=== PATIENT | male | born 1950 ===

== ENCOUNTER → 2016-11-01 | Day surgery (SDC) | payer MEDICARE, OTHER ==
[~2016-11-01] MED LIST: Dexamethasone IV* 4 MG/ML 1 ML (4 MG) ONE; EPHEDrine (Pressors)* 50 MG/ML VIAL ONE; HYDROcodone/ACETAMIN 5-325 MG* 1 TAB PO PRN; Iohexol 180 (CONTRAST) 10 ML SDV IV ONE; Lidocaine 2% MPF* 2 ML VIAL ONE; Morphine INJ* 10 MG/ML 1 ML CARPUJECT ONE; Ondansetron INJ* 2 MG/ML VIAL ONE; PROCHLORPERAZINE INJ 5 MG/ML 2 ML VIAL IV PRN; Propofol* 10 MG/ML 20 ML BTL IV PUSH ONE; cefTRIAXone(*) 2 GM ADDV.VIAL IVPB ONE; fentaNYL* 50 MCG/ML 2 ML VIAL (100 MCG VIAL) IV PRN; fentaNYL* 50 MCG/ML 2 ML VIAL (100 MCG VIAL) ONE; oxyCODONE/Acetamin 5/325 MG* TAB PO PRN
--- NOTE | 2016-11-01 13:32 | HP ---
DATE OF ADMISSION: 11/01/2016. HISTORY OF PRESENT ILLNESS: Mr. Melgar is a 65-year-old white male who is admitted with a right ureteral calculus for cystoscopy, right ureteroscopy, laser lithotripsy, and right ureteral stent placement. Mr. Melgar's symptoms started about four days ago and had consisted of right flank pain radiating to the right lower quadrant, associated with nausea, but no vomiting. There was no associated fevr, gross hematuria, or urinary tract infection symptoms. Because of the severity of the pain, he went to the [facility] Emergency Room yesterday evening. He was evaluated and had blood work which showed a slight elevation of his white count of 12,000. His serum creatinine was 1.4. Urine analysis showed +3 blood, was negative for infection. He was afebrile. Noncontrast CT of the abdomen and pelvis showed severe right hydroureteronephrosis and a 1.2 cm calculus at the right ureterovesical junction. No other abnormalities were noted and no other calculi were seen. The patient was sent home on oral pain medications and referred to my office where he was evaluated this morning and he is being admitted for the above procedure. Past history is completely negative. No past history of any renal disease or calculi. He denies any voiding symptoms, having no decreased urinary stream and no symptoms of bladder outlet obstruction or history of gross hematuria. PAST MEDICAL HISTORY AND SYSTEM REVIEW: The patient had what sounds like ventricular septal defect and had undergone surgical repair of the defect at [facility] six years ago. He has done very well after the procedure and he is not followed by Cardiology anymore. He is hypertensive, well-controlled on Metoprolol 50 mg daily and Amlodipine 5 mg daily. He is diabetic on Metformin 500 mg daily. ALLERGIES: He denies any allergies to medications. FAMILY HISTORY: Relevant for possible family history of prostatic carcinoma in his father. SOCIAL HISTORY: He still works as a taxi truck driver. He is active and has good exercise tolerance. PHYSICAL EXAMINATION GENERAL: Pleasant white male who looks fit and who is in moderate discomfort. VITAL SIGNS: Blood pressure 120/70, pulse 50, temperature 97.3. LUNGS: Clear. HEART: Regular and rhythmic, no murmurs. ABDOMEN: Soft. There is moderate right CVA tenderness and right upper quadrant tenderness. The rest of the examination is normal. EXTERNAL GENITALIA: Normal. He has no inguinal hernias. RECTAL: Exam shows a moderately enlarged, but non-suspicious prostate. IMPRESSION: Recurrent episodes of right renal colic secondary to a 1.2 cm calculus at the right ureterovesical junction associated with severe right hydroureteronephrosis without evidence of infection and no other renal calculi. PLAN: Admission this afternoon for cystoscopy, right ureteroscopy laser lithotripsy, and right ureteral stent placement. Because of the size of the stone, it is possible he might need more than one procedure to render him stone-free. I discussed the above plans in detail with the patient and all his questions were answered. [id number]/[facility] #: [id number] SHERYL
--- NOTE | 2016-11-01 22:11 | RAD ---
INDICATION: Right ureteral calculus. Stent insertion COMPARISON: None FINDINGS: 6 seconds of fluoroscopy were provided for the urology department. Fluoroscopic spot imaging of the abdomen were obtained for operative control and show placement of a right ureteral stent in a mildly dilated collecting system which appears to be a bifid configuration. . CPT II Codes: 6045F (fluoro time doc)
[2016-11-01 22:49] VITALS: BP 144/69
--- NOTE | 2016-11-02 15:25 | OP ---
DATE OF OPERATION: 11/01/16 [facility] DATE OF : 46 SURGEON: George Shultz MD ANESTHESIOLOGIST: Gaurav Monaco MD ANESTHESIA: General. PRE-OP DIAGNOSIS: Right distal ureteral calculus (1.5 cm). POST-OP DIAGNOSIS: Right distal ureteral calculus (1.5 cm). OPERATIVE PROCEDURE: 1. Cystoscopy. 2. Right ureteroscopy and laser lithotripsy of right ureteral calculus. 3. Right retrograde pyelography and placement of right ureteral stent (8.5 Togolese) INDICATIONS: Mr. Melgar is a 65-year-old white male who presented to the emergency room at [facility] yesterday with symptoms of right renal colic. There was no fever or chills. Noncontrast CT showed a 1.5-cm obstructing calculus in the distal right ureter with severe right hydroureteronephrosis. No other abnormalities were noted. The patient was evaluated in the office today and scheduled for the above procedure. PATHOLOGY AT CYSTOSCOPY: The penile urethra looked normal. There were soft strictures in the bulbar urethra that were easily bypassed with the cystoscope. The prostatic urethra measured about 2.5 to 3 cm in length and there was moderate degree of obstruction by trilobar hyperplasia of the prostate and elevation of the bladder neck. Examination of the bladder showed moderate diffuse trabeculations. There were no suspicious bladder lesions seen. No calculi or diverticula were noted. The ureteral orifices looked normal. Upon right ureteroscopy, a 1.5-cm calculus was noted in the distal right ureter about 2 cm proximal to the orifice. The calculus was impacted. There was edema of the ureteral mucosa adjacent to the stone. The stone had the gross appearance of calcium oxalate. Right retrograde pyelography showed severe right hydronephrosis and hydroureter with tortuosity of the proximal ureter. DESCRIPTION OF PROCEDURE: After successful general anesthesia, the patient was placed in the dorsal lithotomy position and was prepped and draped in the usual manner. Cystoscopy was performed. The findings in the bulbar and in the prostatic urethra were noted. The bladder was then entered and carefully inspected and the above findings were noted. A flexible-tip guidewire was then introduced into the right orifice and positioned in the renal pelvis by fluoroscopy guidance. A size 6.5 semirigid ureteroscope was then introduced under direct vision inside the bladder. A flexible-tip basket was introduced through the port of the ureteroscope and the flexible tip was introduced into the right orifice and was used as a guide to introduce the ureteroscope inside the right ureter in an atraumatic way. The ureteral calculus was identified. The basket was then introduced beyond the stone and was deployed to avoid proximal migration of the stone. A size 550 micron laser fiber was then introduced through the other port of the ureteroscope. The stone was then broken into multiple small fragments. Because of the size of the stone and its composition, there was significant amount of lasering that had to be done to fragment the stone into extractable fragments. The lasering was performed with no trauma to the ureteral wall. The stone fragments were then engaged within the basket and they were extracted. Additional lasering was needed for the larger fragments. At the completion of the procedure, there were no significant fragments left in the ureter, only sand like particles. There was no evidence of ureteral wall injury. There was, however, edema and abrasion of the mucosa from the impaction of the stone. Retrograde pyelography was then performed. A size 8.5-Togolese stent was then placed with the proximal end coiling in the renal pelvis and distal end inside the bladder. The stone fragments inside the bladder were then extracted and sent for stone analysis. The cystoscope was then removed and a size 16-Togolese Serrano catheter was passed inside the bladder and the balloon inflated with 10 cc of water. The patient tolerated the procedure well and left the operating room in good condition. The plan is to keep the stent in place for the next 7 to 10 days. It will be removed in the office under local anesthesia. [id number]/[facility] #: [id number] SHERYL
== END | disposition home or self-care (01) ==
LOC: OR 14:15
PROVIDERS: ATTEND Urology
DX: N13.2 Hydronephrosis with renal and ureteral calculous obstruction (principal); I10 Essential (primary) hypertension; E11.9 Type 2 diabetes mellitus without complications; Z79.84 Long term (current) use of oral hypoglycemic drugs
CPT/HCPCS: 36415; 74420; 82365; 86703; 86803; 88300; C1876; J0696; J1100; J2270; J2405; J2704; J3010